=== PATIENT | male | born 1995 | race Two or more races ===

== ENCOUNTER 2016-07-12 15:59 | Emergency (ER) | payer BC ==
[~2016-07-12] VITALS: Ht 177.8 cm; Wt 85.9 kg
[2016-07-12 19:46] VITALS: BP 119/67
== END 2016-07-12 19:47 | disposition home or self-care (01) ==
LOC: EME 15:59
DX: S70.02XA Contusion of left hip, initial encounter (principal); S30.811A Abrasion of abdominal wall, initial encounter; V03.90XA Pedestrian on foot injured in collision with car, pick-up truck or van, unspecified whether traffic or nontraffic accident, initial encounter; F17.200 Nicotine dependence, unspecified, uncomplicated
CPT/HCPCS: 74177; 80048; 85025; 99281; 99284; J7030